=== PATIENT | male | born 1980 | race Caucasian/White ===

== ENCOUNTER 2016-10-02 11:08 | Observation (INO) | payer OTHER ==
[2016-10-02] MEDS ORDERED: NS 1,000 ML IV ONE (11:16)
[2016-10-02] MEDS ORDERED: ceFAZolin 2 GM/DEXTROSE 100 ML IV ONE (11:16)
[2016-10-02] MEDS ORDERED: BACITRACIN IRRIGATION/NS 50,000 UNITS/1,000 ML BTL IRR ONE (11:16)
[2016-10-02] MEDS ORDERED: MIDAZOLAM 2 MG/2 ML VIAL IVP ONE (11:16)
--- NOTE | 2016-10-02 11:46 | CPEKG ---
Heart Rate: 81 RR Interval: 741 P-R Interval: 144 QRSD Interval: 94 QT Interval: 356 QTC Interval: 414 P [place]: 68 QRS [place]: -37 T Wave [place]: 9 EKG Severity - ABNORMAL ECG - EKG Impression: SINUS RHYTHM EKG Impression: INFERIOR INFARCT, AGE INDETERMINATE Electronically Signed By: Abhishek Khanna 03-Oct-2016 09:02:24
[2016-10-02 11:59] LABS: % IMMATURE GRANULYOCYTES 0.1 % (0.0-1.1); ABSOLUTE IMMATURE GRANULOCYTES 0.01 10^3/uL (0.00-0.10); ADD DIFF? NO; ADD MORPH? NO; ADD SCAN? NO; ATYPICAL LYMPHOCYTE FLAG 10 (0-99); FRAGMENT RBC FLAG 0 (0-99); HEMATOCRIT 49.4 % (40.0-51.0); HEMOGLOBIN 17.8 g/dL (13.7-17.5); LEFT SHIFT FLG 0 (0-99); LIPEMIA HEMOLYSIS FLAG 90 (0-99); MEAN CELL VOLUME 88.8 fL (81.5-99.8); MEAN PLATELET VOLUME 8.5 fL (8.7-11.7); PLATELET CLUMPS FLAG 0 (0-99); PLATELET COUNT 187 10^3/uL (150-400); RED BLOOD CELL COUNT 5.56 10^6/uL (4.40-6.38); RED CELL DISTRIBUTION WIDTH 11.9 % (11.5-15.2)
[2016-10-02 12:10] LABS: INR 0.97 (0.83-1.16); PROTIME(PATIENT) 12.8 SEC (12.0-15.0)
[2016-10-02 12:11] LABS: APTT 24.2 SEC (23.0-38.0)
[2016-10-02 12:15] LABS: ANION GAP 14 mEq/L (8-16); CALCIUM 9.8 mg/dL (8.5-10.4); CARBON DIOXIDE 24 mEq/l (22-31); CHLORIDE 106 mEq/L (97-110); CREATININE 0.8 mg/dL (0.7-1.3); GLOMERULAR FILTRATION RATE > 60; GLUCOSE 90 mg/dL (70-100); MAGNESIUM 1.9 mg/dL (1.6-2.3); POTASSIUM 3.9 mEq/L (3.5-5.2); SODIUM 144 mEq/L (134-144)
[2016-10-02] MEDS ORDERED: ISOPROTERENOL HCL 0.2 MG/ML 5ML AMP ONE (14:17)
[2016-10-02] MEDS ORDERED: LIDOCAINE 1% 30 ML SDV ONE (14:17)
[2016-10-02] MEDS ORDERED: BUPIVACAINE 0.5% 30 ML SDV ONE (14:17)
[2016-10-02] MEDS ORDERED: PROPOFOL/EMULSION 500 MG/50 ML BOTTLE IV ONE ×2 (14:34→15:07)
[2016-10-02] MEDS ORDERED: MIDAZOLAM 2 MG/2 ML VIAL ONE (14:35)
[2016-10-02] MEDS ORDERED: ATROPINE SULFATE 1 MG/10 ML SYR ONE (16:01)
[2016-10-02] MEDS ORDERED: ACETAMINOPHEN 325 MG TAB ONE (17:55)
[2016-10-02 18:37] VITALS: TEMP 98.1
[2016-10-02 19:51] VITALS: O2SAT 95
[2016-10-02 20:58] VITALS: BP 123/77; PULSE 75; RESP 18
--- NOTE | 2016-10-04 10:48 | EPPROC ---
Electrophysiology Procedure Note: DIAGNOSTIC ELECTROPHYSIOLOGIC STUDY Procedures performed: * Fluoroscopy * 39421-36 EP evaluation with RA/RV/LA pace/record, with arrhythmia induction * 98069-86 EP evaluation with RA/RV pace record, insert/reposition catheter, with arrhythmia induction 4. [id number] Programmed stimulation + pacing after IV drug INDICATION: This is a 36 yr old with inferior wall AR s/p PCI, who has EF 50% but has NSVT and episodes of palpitation associated with dizziness and presyncope. hecne it was decided to evaluate him with EP study for induction of sustained VT/VF PROCEDURE: Catheters & Anesthesia: The patient arrived in the Electrophysiology Laboratory in the fasting state. The right clavicular region, right groin, & left groin area were prepped & draped in the usual sterile manner. Moderate sedation was administered by anesthesiologist. Appropriate non-invasive blood pressure, pulse oximetry & end -tidal CO2 monitoring was established. All catheters were placed percutaneously using the modified Seldinger technique , and advanced into position under fluoroscopic guidance. One decapolar catheter was placed in the RVA and then in the RVOT Programmed stimulation was performed from the RV. Ventricular programmed stimulation was performed using standard protocol (2 pacing sites, 2 basic cycle lengths, up to 3 extrastimuli at twice pacing threshold). Ventricular burst pacing and long/short sequence pacing was also performed. Isuprel infusion at 2 mcg/min was given and VT induction was attempted during this infusion. In the RVA, multiple episodes of NSVT noted however each of them self terminated. The longest episode was induced with double extrastimuli at 600/250 /200ms and it induced VF which self terminated in 8 sec. No sustained episodes lasting 30 sec were induced. The catheters were removed. The patient was transferred to the cardiovascular holding area in stable condition. Vascular access sheaths were removed in the holding area. There were no apparent complications. Results: No sustained VT induced. Non sustained self terminating VT was induced on many occasions CONCLUSIONS * No sustained ventricular arrhythmias induced. * No apparent complications.
== END 2016-10-02 20:50 | disposition home or self-care (01) ==
LOC: FCATH 11:08 → F2W 17:24
PROVIDERS: ADMIT Internal Medicine Cardiovascular Disease; ATTEND Internal Medicine Cardiovascular Disease
PROC: 4A023FZ Measurement of Cardiac Rhythm, Percutaneous Approach (ICD-10-PCS; principal; 2016-10-02)
DX: I47.2 Ventricular tachycardia (principal); I47.1 Supraventricular tachycardia; I25.10 Atherosclerotic heart disease of native coronary artery without angina pectoris; E78.5 Hyperlipidemia, unspecified; I25.2 Old myocardial infarction; Z95.5 Presence of coronary angioplasty implant and graft
CPT/HCPCS: C1730; J0461; J0690; J1644; J2250; J2704